=== PATIENT | female | born 1955 | race Caucasian/White ===

== ENCOUNTER 2024-08-08 13:01 | Outpatient (REF) | payer MEDICARE, SELFPAY ==
[2024-08-08 16:09] LABS: Cholesterol 219 mg/dL (<200); HDL Cholesterol 61 mg/dL (>40); LDL Cholesterol Calculated 137 mg/dL (<100); Triglycerides 107 mg/dL (<150)
== END 2024-08-08 13:02 | disposition home or self-care (01) ==
LOC: HO.HMGCLDS 13:01
PROVIDERS: PCP Internal Medicine; Visit Provider Internal Medicine
DX: E78.5 Hyperlipidemia, unspecified (principal)
CPT/HCPCS: 36415; 80061